=== PATIENT | male | born 1990 | race Caucasian/White ===

== ENCOUNTER 2016-11-21 17:29 | Inpatient (IN) | payer MEDICAID, OTHER ==
[~2016-11-21] VITALS: Ht 188 cm; Wt 92.0 kg
[2016-11-21] MEDS ORDERED: ONDANSETRON HCL 4 MG/2 ML VIAL IV ONE ×2 (18:30→20:30)
[2016-11-21] MEDS ORDERED: MORPHINE SULFATE 4 MG/ML SYRG IV ONE ×2 (18:30→20:30)
[2016-11-21] MEDS ORDERED: ONDANSETRON HCL 4 MG/2 ML VIAL ONE (20:13)
[2016-11-21] MEDS ORDERED: MORPHINE SULF INJ 2 MG/ML SYRINGE 1ML ONE (20:13)
[2016-11-21] MEDS ORDERED: HYDROmorphone HCL 2 MG/ML VL IV ONE (20:45)
[2016-11-21] MEDS ORDERED: METOCLOPRAMIDE HCL 5MG/ml INJ 2ml VIAL IV ONE (20:45)
[2016-11-21] MEDS ORDERED: LIDOCAINE 1% HCL (LOCAL ANESTH.) INJ 20ML MDV ONE (21:14)
[2016-11-21] MEDS ORDERED: DOCUSATE SOD 100 MG CAP PO PRN (23:45)
[2016-11-21] MEDS ORDERED: ONDANSETRON HCL 4 MG/2 ML VIAL IV PRN (23:45)
[2016-11-21] MEDS ORDERED: TEMAZEPAM 15 MG CAP PO PRN (23:45)
[2016-11-21] MEDS ORDERED: MORPHINE SULF INJ 2 MG/ML SYRINGE 1ML IV PRN (23:45)
[2016-11-22 00:30] VITALS: BP 115/54
[2016-11-22] MEDS: SODIUM CHLORIDE 0.9% 1,000 ML IV SCH ×2 (00:30→16:14)
[2016-11-22] MEDS ORDERED: HYDR500C PO (04:27)
[2016-11-22] MEDS ORDERED: LISI10TA6 PO (04:27)
[2016-11-22] MEDS ORDERED: OMEP20CA5 PO (04:27)
[2016-11-22] MEDS ORDERED: CARV6.2551 PO (04:27)
[2016-11-22] MEDS ORDERED: PRE5T PO (04:30)
[2016-11-22 05:34] VITALS: BP 90/47
[2016-11-22] MEDS: HYDROcodone-ACET 5/325MG TAB PO PRN ×3 (08:27→22:08)
[2016-11-22 09:00] VITALS: BP 94/34
[2016-11-22] MEDS ORDERED: predniSONE 5 MG TAB PO ONE (11:15)
[2016-11-22] MEDS: HYDROXYUREA 500 MG CAP PO SCH (12:59)
[2016-11-22] MEDS: LISINOPRIL 5 MG TAB PO SCH (13:01)
[2016-11-22] MEDS: CARVEDILOL 3.125 MG TAB PO SCH ×2 (13:01→22:08)
[2016-11-22 17:00] VITALS: BP 100/50
[2016-11-22 22:00] VITALS: BP 107/39
[2016-11-23] MEDS: SODIUM CHLORIDE 0.9% 1,000 ML IV SCH (04:27)
[2016-11-23 05:30] VITALS: BP 106/49
[2016-11-23 06:27] LABS: DEFINITIVE VIEW TRANSMISSION; Hematocrit 36.8 % (41.0-53.0); Hemoglobin 12.4 g/dL (13.5-17.5); Mean Corpuscular Hemoglobin 30.9 pg (28.0-32.0); Mean Corpuscular Hgb Conc. 33.5 g/dL (32.0-36.0); Mean Corpuscular Volume 92.1 fL (80.0-100.0); Platelet Count (auto) 285 10^3/uL (140-450); Red Cell Distribution Width 15.2 % (11.6-16.0); White Blood Cell 15.8 10^3/uL (4.4-10.8)
[2016-11-23 06:36] LABS: INR 0.98 (0.9-1.15); Partial Thromboplastin Time 27.7 sec (22.64-33.71); Prothrombin Time 10.7 sec (9.37-12.3)
[2016-11-23 06:43] LABS: Calcium 8.2 mg/dL (8.5-10.1); Potassium 4.5 mmol/L (3.5-5.1)
[2016-11-23 06:44] LABS: BUN/Creatinine Ratio 16.9
[2016-11-23 07:02] LABS: Metamyelocytes % 0; Myelocytes % 0; Promyelocytes % 0; Reactive Lymphocytes 0
[2016-11-23 07:32] LABS: Platelet Estimate Adequate
[2016-11-23 07:33] LABS: RBC Morphology Normal
[2016-11-23] MEDS: HYDROcodone-ACET 5/325MG TAB PO PRN (08:09)
[2016-11-23 09:00] VITALS: BP 119/60
[2016-11-23] MEDS: CARVEDILOL 3.125 MG TAB PO SCH (10:05)
[2016-11-23] MEDS: LISINOPRIL 5 MG TAB PO SCH (10:07)
[2016-11-23] MEDS: HYDROXYUREA 500 MG CAP PO SCH (10:07)
[2016-11-23 13:00] VITALS: BP 131/73
[2016-11-23 14:55] VITALS: BP 119/60
[2016-11-24] MEDS ORDERED: predniSONE 5 MG TAB PO SCH (10:00)
== END 2016-11-23 16:04 | disposition home or self-care (01) | DRG 342 ==
LOC: EDBD 17:29 → ER 17:41 → WEST WING 17:42
PROVIDERS: ADMIT Emergency Medicine; ATTEND Internal Medicine
DX: S83.014A Lateral dislocation of right patella, initial encounter (principal); I50.32 Chronic diastolic (congestive) heart failure; D72.1 Eosinophilia; E66.01 Morbid (severe) obesity due to excess calories; E66.9 Obesity, unspecified; Z68.26 Body mass index [BMI] 26.0-26.9, adult; Z88.0 Allergy status to penicillin; Z71.89 Other specified counseling; W20.8XXA Other cause of strike by thrown, projected or falling object, initial encounter; Y93.89 Activity, other specified; Y92.89 Other specified places as the place of occurrence of the external cause; Y99.8 Other external cause status
CPT/HCPCS: 36415; 73562; 73700; 80048; 85007; 85027; 85610; 85730; 93306; 96374; 96375; 96376; J2001; J2405